=== PATIENT | male | born 1960 | race Caucasian/White ===

== ENCOUNTER → 2021-09-25 | Outpatient (CLI) | payer OTHER ==
[2016-02-08 13:44] VITALS: BP 132/62
[~2021-09-25] MED LIST: CEPH-264 PO
--- NOTE | 2021-09-25 16:34 | RAD ---
Exam: XR HAND_LEFT 3 VIEWS History: Pain. Osteoarthritis. Comparison: None. Findings: Osseous mineralization is normal. No acute fracture or dislocaton. Mild degenerative osteophytes at t he metacarpophalangeal joints and interphalangeal joints. Moderate degenerative changes at the thumb CMC. No focal soft tissue swelling. Impression: 1. Left hand osteoarthritis greatest at the carpal metacarpal joint of the thumb. Electronically signed by: Moiz Reyes MD (09/25/2021 4:31 PM) [id number]
== END ==
LOC: RAD 14:56
PROVIDERS: ATTEND Family Medicine
DX: M19.042 Primary osteoarthritis, left hand (principal)
CPT/HCPCS: 73130